=== PATIENT | female | born 1960 | race Caucasian/White ===

== ENCOUNTER → 2017-04-06 | Outpatient (CLI) | payer OTHER ==
[~2017-04-06] MED LIST: CYCL10; Caltrate-600 W1 EACH; GABA100; HYDR1TAB94; IBUP800; K-Dur20 MEQ; LEVSOD75; METO25ER; MULTI VITAMIN1 EACH; Omeprazole20 M1; Papaya Enzyme1 EAC1; SULI150; TRAM50; TURMERIC500 MG; ZESTORETIC 20-121 E1
[2017-04-08 15:23] LABS: HPV Genotype 16 Not Detected (NOTDET); HPV Genotype 18 Not Detected (NOTDET)
[2017-04-16 11:04] LABS: HPV High Risk Other Not Detected (NOTDET)
== END ==
LOC: LAB 13:56
PROVIDERS: Nurse Practitioner Family
DX: Z12.4 Encounter for screening for malignant neoplasm of cervix (principal)
CPT/HCPCS: 87624; G0145

== ENCOUNTER 2021-03-28 10:00 | Day surgery (SDC) | payer MEDICARE, OTHER ==
[~2021-03-28] VITALS: Ht 162.6 cm; Wt 107.8 kg
== END 2021-03-28 12:05 | disposition home or self-care (01) ==
LOC: ORSCSDS 10:00
PROVIDERS: Student in an Organized Health Care Education/Training Program
PROC: 0D758ZZ Dilation of Esophagus, Via Natural or Artificial Opening Endoscopic (ICD-10-PCS; 2021-03-28)
PROC: 0DB48ZX Excision of Esophagogastric Junction, Via Natural or Artificial Opening Endoscopic, Diagnostic (ICD-10-PCS; principal; 2021-03-28 11:15)
PROC: 0DB58ZX Excision of Esophagus, Via Natural or Artificial Opening Endoscopic, Diagnostic (ICD-10-PCS; principal; 2021-03-28 11:15)
PROC: 0DB68ZX Excision of Stomach, Via Natural or Artificial Opening Endoscopic, Diagnostic (ICD-10-PCS; principal; 2021-03-28 11:15)
DX: R13.10 Dysphagia, unspecified (principal); K21.9 Gastro-esophageal reflux disease without esophagitis; K44.9 Diaphragmatic hernia without obstruction or gangrene; K29.70 Gastritis, unspecified, without bleeding; I10 Essential (primary) hypertension; E03.9 Hypothyroidism, unspecified; M79.7 Fibromyalgia; E66.9 Obesity, unspecified; Z68.39 Body mass index [BMI] 39.0-39.9, adult; Z79.899 Other long term (current) drug therapy
CPT/HCPCS: 88305; 88342; J2704; J7120

== ENCOUNTER → 2021-08-08 | Outpatient (CLI) | payer MEDICARE, OTHER | END | disposition home or self-care (01) | LOC: LAB 08:13 → PLD 08:13 → LAB SHORT 08:13 | DX: L57.0 Actinic keratosis (principal); L82.1 Other seborrheic keratosis | CPT/HCPCS: 88305 ==

== ENCOUNTER → 2023-04-01 | Outpatient (CLI) | payer OTHER ==
[~2023-04-01] MED LIST changes: +IBUP800 PO; +NEURONTIN300 MG PO; +TRAMADOL 50MG TABLET
[2023-04-14 21:11] LABS: HPV GENOTYPE 16 BY PCR Negative; HPV GENOTYPE 18 BY PCR Negative; HPV SOURCE Cervical; HPV, OTHER HIGH RISK BY PCR Negative
== END ==
LOC: LAB 10:27 → LAB SHORT 10:27
PROVIDERS: Student in an Organized Health Care Education/Training Program
DX: Z12.4 Encounter for screening for malignant neoplasm of cervix (principal)
CPT/HCPCS: 87624; 88142

== ENCOUNTER 2023-07-23 07:05 | Day surgery (SDC) | payer OTHER ==
[~2023-07-23] VITALS: Ht 162.6 cm; Wt 109.3 kg
[~2023-07-23 07:05] MED LIST changes: +CYANOCOBALAMIN PO; +DOCU100 PO; +ERGO400 PO; +GABA100 PO; +Lactated Ringer's 1,000 ML IV ONE; +METF500 PO; -MULTI VITAMIN1 EACH; +MULTI VITAMIN1 EACH PO; -NEURONTIN300 MG PO; +TIZANIDINE HCL2 M1 PO; +ZESTORETIC 20-1 EACH PO; -ZESTORETIC 20-121 E1; +ZINC15 PO
[2023-07-23] MEDS ORDERED: CeFAZolin Sodium 2,000 MG VIAL ONE (07:15)
[2023-07-23] MEDS ORDERED: NS 50 ML IV ONE (07:16)
[2023-07-23] MEDS ORDERED: Lidocaine HCl 2% 10 ML SDA ONE (07:20)
[2023-07-23] MEDS ORDERED: Lactated Ringer's 1,000 ML IV ONE (07:51)
--- NOTE | 2023-07-23 07:53 | NUR ---
07/23/23 0753 Manuela Greene PT COMFORTABLE IN BED. NO QUESTIONS OR CONCERS. HAD HER RIGHT ONE DONE 06/04/23.
[2023-07-23] MEDS ORDERED: Ondansetron HCl 2 MG / ML 2ML Vial ONE (08:17)
[2023-07-23] MEDS ORDERED: Dexamethasone Sod Phos 10 MG/ML 1ML VIAL ONE (08:17)
[2023-07-23] MEDS ORDERED: propofoL 0 ML IV ONE (08:17)
[2023-07-23 08:55] VITALS: BP 121/71
== END 2023-07-23 09:20 | disposition home or self-care (01) ==
LOC: ORSCSDS 07:05
PROVIDERS: Orthopaedic Surgery
PROC: 01N54ZZ Release Median Nerve, Percutaneous Endoscopic Approach (ICD-10-PCS; principal; 2023-07-23 08:30)
DX: G56.02 Carpal tunnel syndrome, left upper limb (principal); M79.7 Fibromyalgia; K21.9 Gastro-esophageal reflux disease without esophagitis; I10 Essential (primary) hypertension; E07.9 Disorder of thyroid, unspecified; E66.01 Morbid (severe) obesity due to excess calories; Z68.41 Body mass index [BMI] 40.0-44.9, adult; Z79.899 Other long term (current) drug therapy
CPT/HCPCS: 82947; J0690; J1100; J2001; J2405; J2704; J7120

== ENCOUNTER 2024-07-18 10:28 | Day surgery (SDC) | payer OTHER ==
[~2024-07-18] VITALS: Ht 162.6 cm; Wt 106.5 kg
[~2024-07-18 10:28] MED LIST changes: -Lactated Ringer's 1,000 ML IV ONE; +NS 500 ML IV ONE
[2024-07-18] MEDS ORDERED: CeFAZolin Sodium 2,000 MG VIAL ONE (10:56)
--- NOTE | 2024-07-18 11:18 | NUR ---
07/18/24 1118 Reena King 1006- DR FLOREZ AT BEDSIDE. 1010- TIMEOUT PERFORMED FOR LOCAL INJECTION INTO OP-SITE RIGHT MIDDLE FINGER. PT TOLERATED WELL, WITH SOME WINCING.
[2024-07-18] MEDS ORDERED: Lactated Ringer's 1,000 ML IV ONE (11:27)
[2024-07-18] MEDS ORDERED: FentaNYL Citrate 50 MCG/ML 2 ML Injection ONE (11:33)
[2024-07-18] MEDS ORDERED: Midazolam HCl 1MG / ML 2ML Vial ONE (11:33)
--- NOTE | 2024-07-18 12:46 | NUR ---
07/18/24 1246 Adam Houser PT REPORTED NAUSEA DISCHARGING (AFTER IV REMOVED). SHE DENIED NAUSEA EARLIER. SHE STATED NAUSEA WAS TOLERABLE AND SHE DID NOT FEEL LIKE SHE WAS GOING TO VOMIT. PT HAD BEEN TOLERATING WATER. SHE DENIED PAIN AND EXPRESSED READINESS TO RETURN HOME.
[2024-07-18 12:54] VITALS: BP 132/68
== END 2024-07-18 12:35 | disposition home or self-care (01) ==
LOC: ORSCSDS 10:28
PROVIDERS: Orthopaedic Surgery
PROC: 0LN70ZZ Release Right Hand Tendon, Open Approach (ICD-10-PCS; principal; 2024-07-18 12:00)
DX: M65.331 Trigger finger, right middle finger (principal); S69.91XA Unspecified injury of right wrist, hand and finger(s), initial encounter; K21.9 Gastro-esophageal reflux disease without esophagitis; M79.7 Fibromyalgia; E07.9 Disorder of thyroid, unspecified; I12.9 Hypertensive chronic kidney disease with stage 1 through stage 4 chronic kidney disease, or unspecified chronic kidney disease; E11.22 Type 2 diabetes mellitus with diabetic chronic kidney disease; N18.9 Chronic kidney disease, unspecified; Z79.84 Long term (current) use of oral hypoglycemic drugs; Z79.899 Other long term (current) drug therapy
CPT/HCPCS: 82947; 88305; J0690; J2250; J3010; J7040